=== PATIENT | male | born 1990 | race Asian ===

== ENCOUNTER 2017-12-06 20:41 | Emergency (ER) | payer OTHER ==
[~2017-12-06] VITALS: Ht 177.8 cm; Wt 83.0 kg
[2017-12-06 20:46] VITALS: Ht 177.8 cm; Wt 83.0 kg
--- NOTE | 2017-12-06 21:24 | EMERGENCY ROOM VISIT NOTE ---
ED Visit Note First contact with patient: 20:53 CHIEF COMPLAINT: "I think I ruptured my Achilles tendon" HISTORY OF PRESENT ILLNESS: This 27-year-old male patient presents to the emergency department, ambulatory, approximately 1 hour after sustaining an injury to the left ankle. The patient states he was playing volleyball and was running for a ball. He states he felt that something hard hit the back of his foot, and the area of the Achilles tendon. He states he turned around, and did not see any object on the ground. He notes there were some "sockets" in the floor, but states none of them have popped up. He questions if he may have hit 1 of these. He states he has increased pain with movement, and with a quick Internet search, he suspects a possible Achilles tendon rupture. He states he is unable to stand on his big toe, which is what makes him concerned. He denies any previous injury to the Achilles tendon. The patient is able to walk , but states this does cause increased pain. He does have history of previous ankle sprains, and states this discomfort is different. He denies any pain within the medial or lateral malleolus. He states all the pain is in the posterior aspect of the ankle. No knee pain, the patient is able to move their toes. No numbness or weakness of the foot, no laceration. The patient has not had a previous fracture to this ankle. The patient has taken nothing for the pain. He did put ice on the ankle. The patient denies any other injury. REVIEW OF SYSTEMS: A 6 system review of systems was completed with positives and pertinent negatives listed in the HPI. ALLERGIES: None MEDICATIONS: None PMH: None SOCIAL HISTORY: The patient is a [employer] student. He lives locally with his roommate. He denies drug, alcohol, tobacco use. PHYSICAL EXAM: Vital Signs: Reviewed Nurse's notes, vital signs stable. GENERAL : This is a 27-year-old male, no acute distress, but appears in pain, well -developed, well-nourished. MENTAL STATUS: Alert, oriented to person place and time, and cooperative. MUSCULOSKELETAL: The left ankle is mildly swollen and tender over the posterior mid calf. There is a space noted in the area where the Achilles tendon should be. There is no tenderness in the posterior aspect of the ankle on palpation. Rey test is positive of the left lower extremity. There is no obvious bulge noted within the calf. The skin is intact and there is no ligamentous instability. There is no fifth metatarsal tenderness. There is no tenderness over the rest of the foot. There is no anterior tibia/fibular tenderness. There is no significant obvious visual deformity. The foot and toes are warm and well-perfused. Dorsalis pedis pulse 2+. Sensation to pain and light touch is intact. Capillary refill less than 2 seconds. EMERGENCY DEPARTMENT COURSE: I examined the patient. His symptoms and examination are concerning for possible partial Achilles tendon rupture. I do not feel that x-rays at this time are necessary based on the mechanism and patient's symptoms. An MRI emergently would not change the course of treatment , as the patient is able to bear weight, and examination is questionable for soft-tissue injury. The patient will be treated conservatively at this time with close orthopedic outpatient follow-up. He will be placed in a fracture boot and advised to remain nonweightbearing. Neurovascular status was rechecked and intact. The patient was instructed on the use of crutches. All questions were answered to the patient's satisfaction. He was given instructions on contacting orthopedics. The patient was discharged home in good condition. I did discuss the case with my attending, and we did agree on management at this time. I attest that I have personally reviewed the patient's current medication list. Blood Pressure Screening: Patient was found to have a slightly elevated blood pressure due to circumstances. I do not believe that the patient requires hypertension monitoring. Etiologies such as Achilles tendon rupture, partial tear, soft tissue injury, fracture, dislocation, neurovascular compromise, compartment syndrome, as well as others were entertained. DIAGNOSIS: Achilles tendon injury The chart was completed utilizing [employer] Speech voice recognition software. Grammatical errors, random word insertions, pronoun errors, and incomplete sentences are an occasional consequence of this system due to software limitations, ambient noise, and hardware issues. Any formal questions or concerns about the content, text, or information contained within the body of this dictation should be directly addressed to the provider for clarification. Current/Historical Medications No Active Prescriptions or Reported Meds Allergies Coded Allergies: No Known Allergies (Unverified , 12/06/17) Vital Signs Date Time Temp Pulse Resp B/P (MAP) Pulse Ox O2 Delivery O2 Flow Rate FiO2 12/06/17 21:40 37.0 96 18 145/96 98 12/06/17 20:46 37.0 96 18 171/116 98 Room Air Departure Information Impression Primary Impression: Achilles tendon injury Dispostion Home / Self-Care Condition GOOD Prescriptions No Active Prescriptions or Reported Meds Referrals No Doctor, Assigned (PCP) Castillo Tran MD Patient Instructions ED Tendon Rupture Malik, [facility] Additional Instructions You have been treated in the Emergency Department for a possible Achilles tendon rupture or partial rupture. For pain control, you can use the following [id number] medicines (if >12 yo): Ibuprofen(Motrin, Advil) may be used for fever or pain. Use 600mg every six hours as needed. Take with food. Avoid using more than 2400mg in a 24 hour period. Do not use 2400mg per day for more than three consecutive days without physician direction. Prolonged inappropriate use can lead to stomach upset or ulcers. (AND/OR) Acetaminophen(Tylenol) may be used for fever or pain. Use 1000mg every six hours as needed. Avoid using more than 3000mg in a 24 hour period. If this is a recent injury (<24 hrs), ice can be applied to the area of pain for the first 3 days to help decrease pain and inflammation. You have been provided the number for an Orthopaedic Surgeon. You should call this number as soon as possible (tomorrow morning) to establish a follow-up visit from today's Emergency Department visit. Keep the boot in place until cleared by Orthopedics. Do not get the boot wet. Use the crutches you have been provided to keep ALL weight off of the ankle until you were instructed otherwise by orthopedics. Return to the Emergency Department if your current symptoms worsen despite treatment course outlined above, or if you develop any of the following symptoms : intractable pain despite aforementioned treatment course or new onset of numbness or tingling of the foot. Problem Qualifiers Primary Impression: Achilles tendon injury Encounter type: initial encounter Laterality: left Qualified Codes: S86.002A - Unspecified injury of left Achilles tendon, initial encounter
[2017-12-06 21:40] VITALS: BP 145/96; PULSE 96; TEMP 37; O2SAT 98
== END 2017-12-06 21:44 | disposition home or self-care (01) ==
LOC: C.EDB 20:44 → C.EDD 21:44
DX: S86.002A Unspecified injury of left Achilles tendon, initial encounter (principal); X50.9XXA Other and unspecified overexertion or strenuous movements or postures, initial encounter